=== PATIENT | female | born 1950 | race Caucasian/White ===

== ENCOUNTER 2021-04-23 09:04 | Outpatient (CLI) | payer OTHER | END 2021-04-23 09:10 | disposition home or self-care (01) | LOC: RX STUDY 09:04 → EDBD 09:04 → RX STUDY 09:10 | PROVIDERS: ATTEND Internal Medicine Gastroenterology | DX: K44.9 Diaphragmatic hernia without obstruction or gangrene (principal); R13.19 Other dysphagia ==